=== PATIENT | female | born 1985 | race Hispanic/Latino ===

== ENCOUNTER 2018-12-13 15:36 | Emergency (ER) | payer MEDICAID, OTHER ==
[2018-12-13 16:15] VITALS: BMI 39.6
[2018-12-13 16:25] VITALS: BP 104/71; PULSE 84; RESP 18; TEMP 98.5; O2SAT 98
--- NOTE | 2018-12-13 16:58 | ED PDOC ---
Arrival/HPI - General Chief Complaint: Eye Problem Time Seen by Provider: 12/13/18 16:20 Historian: Patient - History of Present Illness Narrative History of Present Illness (Text): 12/13/18 17:04 33 y/o female with no significant PMH presents to the ED c/o left upper eyelid discomfort from hordeolum x 1 month. Has tried daily warm compresses. Stye was originally improving with daily warm compresses but became red and irritating again over the last few days. Pt noticed some crusting of the area yesterday. Pt has had hordeolums in the past but they typically resolve in approximately 1 week. Pt has not been wearing her contact lenses for the last month. Denies visual changes, eye pain, eye redness, eye discharge, headache, dizziness, sore throat, sinus congestion, or any other associated symptoms. Past Medical History - Provider Review Nursing Documentation Reviewed: Yes - Past History Past History: No Previous - Infectious Disease Hx of Infectious Diseases: None - Tetanus Immunization Tetanus Immunization: Unknown - Cardiac Hx Cardiac Disorders: No - Pulmonary Hx Asthma: Yes - Psychiatric Hx Depression: Yes Hx Emotional Abuse: No Hx Physical Abuse: No Hx Substance Use: No - Past Surgical History Past Surgical History: No Previous - Surgical History Other/Comment: Nasal sx - Anesthesia Hx Anesthesia: Yes Hx Anesthesia Reactions: No Hx Malignant Hyperthermia: No - Suicidal Assessment Feels Threatened In Home Enviroment: No Family/Social History - Physician Review Nursing Documentation Reviewed: Yes Family/Social History: No Known Family HX Smoking Status: Never Smoked Hx Alcohol Use: Yes Hx Substance Use: No Hx Substance Use Treatment: No Allergies/Home Meds Allergies/Adverse Reactions: Allergies No Known Allergies Allergy (Verified 12/13/18 16:25) Review of Systems - Physician Review All systems were reviewed & negative as marked: Yes - Review of Systems Constitutional: Normal. absent: Fevers Eyes: Other (left eye stye). absent: Vision Changes, Photophobia, Eye Pain ENT: Normal. absent: Sore Throat, Sinus Congestion Respiratory: Normal. absent: SOB, Cough Cardiovascular: Normal. absent: Chest Pain, Palpitations, Syncope Gastrointestinal: Normal. absent: Abdominal Pain, Stool Changes, Nausea, Vomiting, Appetite Changes Genitourinary Female: Normal. absent: Dysuria, Frequency Musculoskeletal: Normal. absent: Back Pain, Neck Pain Skin: Normal. absent: Rash Neurological: Normal. absent: Headache, Dizziness, Disequilibrium Endocrine: Normal Hemo/Lymphatic: Normal Psychiatric: Normal Physical Exam Vital Signs Reviewed: Yes Vital Signs Temp Pulse Resp BP Pulse Ox 12/13/18 16:15 98.5 F 84 18 104/71 98 Temperature: Afebrile Blood Pressure: Normal Pulse: Regular Respiratory Rate: Normal Appearance: Positive for: Well-Appearing, Non-Toxic, Comfortable Pain Distress: None Mental Status: Positive for: Alert and Oriented X 3 - Systems Exam Head: Present: Atraumatic, Normocephalic Pupils: Present: PERRL Extroacular Muscles: Present: EOMI Conjunctiva: Present: Normal, Other (external hordeolum on left upper outer lid; no eyelid swelling). No: Injected Ears: Present: Normal, NORMAL TM, Normal Canal Mouth: Present: Moist Mucous Membranes Pharnyx: Present: Normal. No: ERYTHEMA, EXUDATE Nose (External): Present: Atraumatic Nose (Internal): Present: Normal Inspection Neck: Present: Normal Range of Motion. No: Meningeal Signs, MIDLINE TENDERNESS, Paraspinal Tenderness Respiratory/Chest: Present: Clear to Auscultation Cardiovascular: Present: Regular Rate and Rhythm Upper Extremity: Present: Normal Inspection, Normal ROM, NORMAL PULSES, Neurovascularly Intact, Capillary Refill < 2s Lower Extremity: Present: Normal ROM Neurological: Present: GCS=15, CN II-XII Intact, Speech Normal, Motor Func Grossly Intact, Normal Sensory Function, Gait Normal Skin: Present: Warm, Dry, Normal Color. No: Rashes Psychiatric: Present: Alert, Oriented x 3, Normal Insight, Normal Concentration, Normal Affect, Normal Mood Medical Decision Making ED Course and Treatment: Advised patient to followup with ophthalmology secondary to length of symptoms. Given prescription for erythromycin ointment. Pt agrees to followup within 2 days. Diagnostic testing results and plan of care discussed with patient. Strict instructions given regarding prescription use, importance of followup, and signs/symptoms to return to ER including visual changes, dizziness, headache, or any other new/worsening symptoms. Pt verbalized understanding of discussion. Patient is A&Ox3, ambluating with steady gait, with vital signs stable for discharge. Disposition/Present on Arrival - Present on Arrival Any Indicators Present on Arrival: No History of DVT/PE: No History of Uncontrolled Diabetes: No Urinary Catheter: No History of Decub. Ulcer: No History Surgical Site Infection Following: None - Disposition Have Diagnosis and Disposition been Completed?: Yes Diagnosis: Hordeolum externum (stye) Disposition: HOME/ ROUTINE Disposition Time: 17:04 Condition: STABLE Discharge Instructions (ExitCare): Stye (Hordeolum) Additional Instructions: Apply 1/2inch ribbon erythromycin to eye every 6 hours for 7 days Continue warm compresses 3-4 times daily for 10-15 minutes at a time Discontinue contact lens and eye makeup use Followup with eye doctor tomorrow Followup with primary doctor within 2 days Return to ER with any new/worsening symptoms Prescriptions: Erythromycin 0.5% [Erythromycin] 1 applic OS Q6H #1 tube Referrals: Salazar Bucio MD [Staff Provider] - Follow up with primary Forms: [facility] (Slovenian), WORK NOTE
== END 2018-12-13 17:18 | disposition home or self-care (01) ==
LOC: ED 15:36
DX: H00.014 Hordeolum externum left upper eyelid (principal)